=== PATIENT | female | born 1995 | race African-American/Black ===

== ENCOUNTER 2022-03-13 17:14 | Emergency (ER) | payer SELFPAY ==
[2022-03-13] MEDS ORDERED: Morphine 4 MG/ML VIAL ONE (18:04)
[2022-03-13] MEDS ORDERED: ceFAZolin 2 GM/Dextrose 50 ML IVPB ONE (18:05)
[2022-03-13] MEDS ORDERED: Boostrix 0.5 ML (Tdap) VIAL ONE (18:05)
[2022-03-13] MEDS ORDERED: Lidocaine 1% w/Epinephrine 1:200K 30 ML VIAL FS SCH (20:15)
[2022-03-13] MEDS ORDERED: Lidocaine 1% (PF) 30 ML VIAL ONE (20:16)
[2022-03-13] MEDS ORDERED: Bacitracin 1 PK ONE (21:38)
== END 2022-03-13 21:42 | disposition home or self-care (01) ==
LOC: CSHERS 17:14
DX: S81.011A Laceration without foreign body, right knee, initial encounter (principal); S90.31XA Contusion of right foot, initial encounter; F17.210 Nicotine dependence, cigarettes, uncomplicated; X58.XXXA Exposure to other specified factors, initial encounter
CPT/HCPCS: 12004; 90471; 90715; 96374; 96375; J0690; J2001; J2270